=== PATIENT | male | born 1950 | race Caucasian/White ===

== ENCOUNTER 2017-09-13 16:45 | Emergency (ER) | payer OTHER ==
--- NOTE | 2017-09-13 17:33 | EDPHY ---
H & P Stated Complaint: lifting heavy seat /pulled something in upper abd Time Seen by Provider: 09/13/17 17:32 HPI/ROS: CHIEF COMPLAINT: Abdominal pain following lifting injury at work HISTORY OF PRESENT ILLNESS: The patient presents to the ED with mild left upper quadrant abdominal pain following a lifting injury that occurred or yesterday. The patient reports pain below his ribs in the anterior abdominal wall. He denies any sensation of a hernia or palpable mass. The patient was sent here for medical clearance. The patient does have a prior history of prostatectomy and hernia surgery. The patient denies any pleuritic chest pain, asymmetric calf pain or swelling. REVIEW OF SYSTEMS: A comprehensive 10 point review of systems is otherwise negative aside from elements mentioned in the history of present illness. Source: Patient Exam Limitations: No limitations - Personal History Current Tetanus/Diphtheria Vaccine: Yes - Medical/Surgical History Hx Asthma: No Hx Chronic Respiratory Disease: No Hx Diabetes: No Hx Cardiac Disease: No Hx Renal Disease: No Hx Cirrhosis: No Hx Alcoholism: No Hx HIV/AIDS: No Hx Splenectomy or Spleen Trauma: No Other PMH: denies - Social History Smoking Status: Former smoker - Physical Exam Exam: General Appearance: Alert, no distress Eyes: Pupils equal and round no pallor or injection ENT, Mouth: Mucous membranes moist Respiratory: There are no retractions, lungs are clear to auscultation Cardiovascular: Regular rate and rhythm Gastrointestinal: Tenderness to palpation at the musculotendinous insertion of the rectus muscle on the left lower anterior ribs. No palpable hernia, benign abdominal exam Musculoskeletal: Neck is supple nontender Extremities: symmetrical, full range of motion Constitutional: Initial Vital Signs Temperature (C) 36.6 C 09/13/17 17:00 Heart Rate 73 09/13/17 17:00 Respiratory Rate 17 09/13/17 17:00 Blood Pressure 150/113 H 09/13/17 17:00 O2 Sat (%) 97 09/13/17 17:00 O2 Delivery Mode Room Air Allergies/Adverse Reactions: No Known Allergies Allergy (Unverified 09/13/17 16:59) Home Medications: Medication Instructions Recorded VYVANSE 09/13/17 Medical Decision Making ED Course/Re-evaluation: The patient presents to the ED with a mild abdominal wall strain following a lifting injury. There is no evidence of an obvious hernia. I do not feel that further workup is indicated. I do feel the patient can use ibuprofen and ice his area of discomfort. He has been advised to return to the ED for the development of symptoms consistent with a hernia, worsening pain or difficulty breathing. Departure - Departure Disposition: Home, Routine, Self-Care Clinical Impression: Abdominal wall strain Condition: Good Instructions: Musculoskeletal Pain (ED) Additional Instructions: 1. Take Ibuprofen or Motrin 600 mg by mouth three times a day. 2. Use ice 20 min at a time 4 to 5 times a day for next 2-3 days. 3. Return to the ED for markedly worsening symptoms, any bulge or increasing tenderness noted in your abdominal wall or other concerns. Referrals: DR GABRIEL [Other] - As per Instructions
[2017-09-13 18:05] VITALS: BP 109/76
== END 2017-09-13 18:06 | disposition home or self-care (01) ==
DX: S39.011A Strain of muscle, fascia and tendon of abdomen, initial encounter (principal); Z87.891 Personal history of nicotine dependence; W24.0XXA Contact with lifting devices, not elsewhere classified, initial encounter; Y99.8 Other external cause status; Y93.F2 Activity, caregiving, lifting